=== PATIENT | female | born 1960 | race African-American/Black ===

== ENCOUNTER 2022-08-05 20:45 | Emergency (ER) | payer OTHER ==
[2022-08-05 20:58] VITALS: BP 123/71; PULSE 57; RESP 19; TEMP 98.2; BMI 22.6
[2022-08-05 22:09] LABS: EPI CELLS 7 /uL (0-25.1); HYALINE CASTS 0 /uL (0-3.1); URINE APPEARANCE CLEAR; URINE BACTERIA 97 /uL (0-1359); URINE BILIRUBIN NEGATIVE (NEGATIVE); URINE COLOR YELLOW; URINE GLUCOSE (UA) NEGATIVE (NEGATIVE); URINE KETONE TRACE (NEGATIVE); URINE LEUK ESTERASE 1+ (NEGATIVE); URINE NITRITE NEGATIVE (NEGATIVE); URINE PROTEIN NEGATIVE (NEGATIVE); URINE RBC 6 /uL (0-23.9); URINE UROBILINOGEN 0.2 mg/dL (0.2-1.0); URINE WBC 1 /uL (0-25.8)
[2022-08-05] MEDS ORDERED: FLUCONAZOLE 150 MG TABLET PO ONE ×2 (22:43→22:44)
[2022-08-05] MEDS ORDERED: ACETAMINOPHEN 500 MG TABLET (FP) ONE ×2 (22:50→22:59)
== END 2022-08-05 22:57 | disposition home or self-care (01) ==
LOC: JERFT 20:45
DX: B37.3 Candidiasis of vulva and vagina (principal)
CPT/HCPCS: 36415; 81003; 87086; 87491; 87591; 99283-25